=== PATIENT | female | born 1955 | race Caucasian/White ===

== ENCOUNTER 2021-11-24 10:45 | Emergency (ER) | payer MEDICAID, SELFPAY ==
[2021-11-24 12:33] VITALS: BP 146/72; PULSE 77; RESP 15; TEMP 37.1; O2SAT 95; BMI 46.5
--- NOTE | 2021-11-24 13:43 | CTR_ITS ---
PROCEDURE INFORMATION: Exam: CT Abdomen And Pelvis With Contrast Exam date and time: 11/24/2021 3:53 PM Age: 66 years old Clinical indication: Other: Llq pain; Additional info: Llq abd pain TECHNIQUE: Imaging protocol: Computed tomography of the abdomen and pelvis with contrast. Radiation optimization: All CT scans at this facility use at least one of these dose optimization techniques: automated exposure control; mA and/or kV adjustment per patient size (includes targeted exams where dose is matched to clinical indication); or iterative reconstruction. Contrast material: OMNIPAQUE 300; Contrast volume: 95 ml; Contrast route: INTRAVENOUS (IV); COMPARISON: No relevant prior studies available. RADIATION DOSE METRICS: Total DLP (mGy-cm): 1822.12 FINDINGS: Lungs: Bibasilar atelectasis versus minimal infiltrate. Heart: Coronary artery atherosclerotic calcifications. Liver: Normal. No mass. Gallbladder and bile ducts: Gallbladder wall somewhat prominent, ultrasound could further evaluate this. Pancreas: Normal. No ductal dilation. Spleen: Normal. No splenomegaly. Adrenal glands: Normal. No mass. Kidneys and ureters: Normal. No hydronephrosis. Stomach and bowel: Mid sigmoid colon demonstrates several diverticuli with perhaps mild wall thickening and minimal surrounding edema as seen on series 602, image 52, perhaps reflecting an early diverticulitis in the appropriate clinical setting. Constipation. Prominent fluid in the small bowel without dilation suggestive of an enteritis. Appendix: No evidence of appendicitis. Intraperitoneal space: Unremarkable. No free air. No significant fluid collection. Vasculature: Unremarkable. No abdominal aortic aneurysm. Lymph nodes: Unremarkable. No enlarged lymph nodes. Urinary bladder: Unremarkable as visualized. Reproductive: Unremarkable as visualized. Bones/joints: Unremarkable. No acute fracture. Soft tissues: Unremarkable. CT/CT abdomen pelvis w con* [id number] IMPRESSION: 1. Mid sigmoid colon demonstrates several diverticuli with perhaps mild wall thickening and minimal surrounding edema as seen on series 602, image 52, perhaps reflecting an early diverticulitis in the appropriate clinical setting. 2. Bibasilar atelectasis versus minimal infiltrate. 3. Coronary artery atherosclerotic calcifications. 4. Gallbladder wall somewhat prominent, ultrasound could further evaluate this. 5. Constipation. 6. Prominent fluid in the small bowel without dilation suggestive of an enteritis.
--- NOTE | 2021-11-24 13:49 | W.ED.GIBLEED ---
HPI - GI Bleed General: Chief complaint: GI Bleed Stated complaint: bloody stool Time Seen by Provider: 11/24/21 13:31 Course Vital Signs: Vital signs: Vital Signs Temperature 98.7 F 11/24/21 12:33 Pulse Rate 77 11/24/21 12:33 Respiratory Rate 15 11/24/21 12:33 Blood Pressure 146/72 11/24/21 12:33 Pulse Oximetry 95 11/24/21 12:33 Discharge Plan Discharge Condition: Stable Referrals: Celestine Domingo DO [Primary Care Provider] - Coding Level of Care Code ED Armed Security Guard for Solomon Brunson
[2021-11-24 13:51] VITALS: BP 145/114; PULSE 75; RESP 16; O2SAT 92
--- NOTE | 2021-11-24 13:52 | W.ED.GENADLT ---
HPI - General Adult General: Chief complaint: GI Bleed Stated complaint: bloody stool Time Seen by Provider: 11/24/21 13:31 History of Present Illness: Patient is a 66-year-old female with a history of prior hysterectomy presenting to the emergency room with concerns for clots and blood in stool. Patient tells me that since last , she has had multiple episodes of stool with large clots. Patient denies any history of hemorrhoids, rectal pain. Patient tells me that symptoms persisted for the last 3 days and stop until yesterday. Patient denies any fever or chills, abdominal pain, nausea/vomiting, hematemesis, complaints or change in p.o. intake. Patient also denies any chest pain, shortness breath, or palpitation. Onset: 6 days ago Duration: 4 days Location:home Severity:moderate Associated symptoms: Deny chest pain, dyspnea, nausea, rash, palpitations or vomiting Review of Systems Const: Denies: fever(s) or chills Eyes: Denies: change in vision ENMT: Denies: mouth pain Card: Denies: chest pain or palpitations Resp: Denies: dyspnea or non-productive cough GI: Reports: other (+blood in stool); Denies: abdominal pain, nausea, vomiting or diarrhea (+loose stool) : Denies: dysuria Musc: Denies: extremity pain Skin/Breast: Denies: rash or new lesions Neuro: Denies: weakness in extremities Psych: Reports: other (Normal mood) Leroy/Lymph: Denies: easy bruising PFSH ED PFSH: Surgical History H/O: hysterectomy Social History Smoking and tobacco status: never smoked Alcohol intake: never Substance/Drug Use: never Physical Exam Const: COMMON NORMALS: alert HENMT: COMMON NORMALS: atraumatic HEAD & SCALP: atraumatic MOUTH: moist mucous membranes not abnormal Eye: COMMON NORMALS: EOMs intact bilaterally and conjunctivae normal CONJUNCTIVA: Yes conjunctivae normal Neck/C-Spine: COMMON NORMALS: full ROM and supple Resp: COMMON NORMALS: normal respiratory effort and clear to auscultation bilaterally AUSCULTATION: clear to auscultation bilaterally Cardio: COMMON NORMALS: regular rate RATE: regular rate GI: COMMON NORMALS: Soft to palpation PALPATION: Yes Soft to palpation OTHER: + LLQ focal TTP. NO guarding rebound, guarding, rigidity. No CVA tenderness to percussion. Neg Mensah/Neg McBurney's point tenderness, no suprabupic tenderness to palpation. RECTAL: Exam supervised by Gisell: no melena or hematochezia. Hemoccult negative brown stool Extremity: COMMON NORMALS: full ROM Neuro: SENSORIUM/ORIENTATION: Yes alert MOTOR EXAM: No Abnormal motor strength present and Other motor observations present (no focal motor deficits) Psych: COMMON NORMALS: speech normal SPEECH: Yes normal speech MOOD & AFFECT: Yes euthymic mood Course Vital Signs: Vital signs: Vital Signs Temperature 98.7 F 11/24/21 12:33 Pulse Rate 75 11/24/21 13:51 Respiratory Rate 16 11/24/21 14:14 Blood Pressure 145/114 11/24/21 13:51 Pulse Oximetry 92 11/24/21 13:51 [facility] - General Adult Medical Decision Making 66-year-old female history of prior hysterectomy presenting to the emergency room for concerns of passage of clots in the stool. Patient has had symptoms for 4 days currently without any symptoms. On physical exam, patient has a moderate left lower quadrant tenderness to palpation without any guarding or rebound tenderness. Hemoccult negative stool today. Hemodynamically stable. White count of 8.8. CT abdomen pelvis showed possible early diverticulitis. Patient's not complaining lower abdominal pain. Patient is tolerating p.o. without difficulty. H&H appears to be stable. Do not suspect acute lower GI bleed. In setting of pain, likely early diverticulitis. I have patient follow-up closely with her primary care provider. Patient reassured me that she will follow-up closely. Rx augmentin BID for early diverticulitis, florastor for antibiotics Disposition: Discharge. Patient counseled regarding diagnostic impression, treatment plan. Patient given ED strict return precautions to return for continuation, worsening, or development of new symptoms. Instructed to f/u w/ PCP regarding symptoms today. Patient verbalized understanding. Lab Data : 11/24/21 14:07 11/24/21 14:07 Radiology Impressions Abdomen/Pelvis CT 11/24/21 13:43 IMPRESSION: 1. Mid sigmoid colon demonstrates several diverticuli with perhaps mild wall thickening and minimal surrounding edema as seen on series 602, image 52, perhaps reflecting an early diverticulitis in the appropriate clinical setting. 2. Bibasilar atelectasis versus minimal infiltrate. 3. Coronary artery atherosclerotic calcifications. 4. Gallbladder wall somewhat prominent, ultrasound could further evaluate this. 5. Constipation. 6. Prominent fluid in the small bowel without dilation suggestive of an enteritis. Laboratory Results WBC 8.8 10^3/uL (4.0-10.0) 11/24/21 14:07 RBC 5.07 10^6/uL (4.1-5.3) 11/24/21 14:07 Hgb 14.5 g/dL (11.5-15.3) 11/24/21 14:07 Hct 45.2 % (37.0-47.0) 11/24/21 14:07 MCV 89.2 fl (81-99) 11/24/21 14:07 MCH 28.6 pg (28.0-34.0) 11/24/21 14:07 MCHC 32.1 g/dL (30.0-36.0) 11/24/21 14:07 RDW 13.3 % (12.1-15.1) 11/24/21 14:07 Plt Count 244 10^3/cmm (130-400) 11/24/21 14:07 MPV 11.7 fL (7.4-10.4) H 11/24/21 14:07 Neut % (Auto) 58.8 % 11/24/21 14:07 Lymph % (Auto) 26.4 % 11/24/21 14:07 [place] % (Auto) 10.3 % 11/24/21 14:07 Eos % (Auto) 3.7 % 11/24/21 14:07 Baso % (Auto) 0.6 % 11/24/21 14:07 Neut # (Auto) 5.19 10^3/uL (1.8-7.7) 11/24/21 14:07 Lymph # (Auto) 2.3 10^3/uL (0.8-4.8) 11/24/21 14:07 [place] # (Auto) 0.9 10^3/uL (0.2-0.9) 11/24/21 14:07 Eos # (Auto) 0.3 10^3/uL (0.0-0.8) 11/24/21 14:07 Baso # (Auto) 0.1 10^3/uL (0.0-0.1) 11/24/21 14:07 Nucleated RBC % (auto) 0 % 11/24/21 14:07 Nucleated RBCs # 0.0 /100WBC 11/24/21 14:07 PT 13.50 SECONDS (12.1-14.9) 11/24/21 14:07 INR 1.00 (0.8-1.2) 11/24/21 14:07 APTT 27.2 SECONDS (23.9-36.7) 11/24/21 14:07 Sodium 138 mmol/L (136-145) 11/24/21 14:07 Potassium 4.7 mmol/L (3.5-5.1) 11/24/21 14:07 Chloride 102 mmol/L (98-107) 11/24/21 14:07 Carbon Dioxide 23 mmol/L (22-29) 11/24/21 14:07 Anion Gap 17.7 (5-19) 11/24/21 14:07 BUN 21 mg/dL (8-23) 11/24/21 14:07 Creatinine 1.0 mg/dL (0.5-0.9) H 11/24/21 14:07 GFR Calculation 55.8 mL/min (90-130) L 11/24/21 14:07 Glucose 143 mg/dL (65-115) H 11/24/21 14:07 Calculated Osmolality 291 mOsm/kg (285-295) 11/24/21 14:07 Calcium 9.8 mg/dL (8.5-10.5) 11/24/21 14:07 Total Bilirubin 0.4 mg/dL (0.15-1.2) 11/24/21 14:07 AST 19 U/L (0-32) 11/24/21 14:07 ALT 14 U/L (0-33) 11/24/21 14:07 Alkaline Phosphatase 84 IU/L (35-105) 11/24/21 14:07 Total Protein 8.1 g/dL (6.6-8.7) 11/24/21 14:07 Albumin 4.3 g/dL (3.5-5.2) 11/24/21 14:07 Globulin 3.8 g/dL (1.3-4.6) 11/24/21 14:07 Blood Type B Positive 11/24/21 14:22 Rho(D) Type Positive 11/24/21 14:22 Antibody Screen Negative 11/24/21 14:22 Imaging Data Other Imaging: Radiologist's impression: [address] [address] [address] Scan Report Signed Patient: Victoria Crook Unit #: [id number] : 1955 Age/Sex: 66 / F ADM Date: 11/24/21 Loc: ER Room/Bed: Attending Dr: Ordering Provider/Ordering MD: Fidel Pruett MD Date of Service: 11/24/21 Procedure(s): CT abdomen pelvis w con* [id number] Accession Number(s): [id number] Report Number: [id number] PROCEDURE INFORMATION: Exam: CT Abdomen And Pelvis With Contrast Exam date and time: 11/24/2021 3:53 PM Age: 66 years old Clinical indication: Other: Llq pain; Additional info: Llq abd pain TECHNIQUE: Imaging protocol: Computed tomography of the abdomen and pelvis with contrast. Radiation optimization: All CT scans at this facility use at least one of these dose optimization techniques: automated exposure control; mA and/or kV adjustment per patient size (includes targeted exams where dose is matched to clinical indication); or iterative reconstruction. Contrast material: OMNIPAQUE 300; Contrast volume: 95 ml; Contrast route: INTRAVENOUS (IV);? COMPARISON: No relevant prior studies available. RADIATION DOSE METRICS: Total DLP (mGy-cm): 1822.12 FINDINGS: Lungs: Bibasilar atelectasis versus minimal infiltrate. Heart: Coronary artery atherosclerotic calcifications. Liver: Normal. No mass. Gallbladder and bile ducts: Gallbladder wall somewhat prominent, ultrasound could further evaluate this. Pancreas: Normal. No ductal dilation. Spleen: Normal. No splenomegaly. Adrenal glands: Normal. No mass. Kidneys and ureters: Normal. No hydronephrosis. Stomach and bowel: Mid sigmoid colon demonstrates several diverticuli with perhaps mild wall thickening and minimal surrounding edema as seen on series 602, image 52, perhaps reflecting an early diverticulitis in the appropriate clinical setting. Constipation. Prominent fluid in the small bowel without dilation suggestive of an enteritis. Appendix: No evidence of appendicitis. Intraperitoneal space: Unremarkable. No free air. No significant fluid collection. Vasculature: Unremarkable. No abdominal aortic aneurysm. Lymph nodes: Unremarkable. No enlarged lymph nodes. Urinary bladder: Unremarkable as visualized. Reproductive: Unremarkable as visualized. Bones/joints: Unremarkable. No acute fracture. Soft tissues: Unremarkable. CT/CT abdomen pelvis w con* [id number] IMPRESSION: 1. Mid sigmoid colon demonstrates several diverticuli with perhaps mild wall thickening and minimal surrounding edema as seen on series 602, image 52, perhaps reflecting an early diverticulitis in the appropriate clinical setting. 2. Bibasilar atelectasis versus minimal infiltrate. 3. Coronary artery atherosclerotic calcifications. 4. Gallbladder wall somewhat prominent, ultrasound could further evaluate this. 5. Constipation. 6. Prominent fluid in the small bowel without dilation suggestive of an enteritis. ? Dictated By: Jon Gu MD Signed By: Jon Gu MD Signed Date/Time: 11/24/21 1622 DD/ 1553 Discharge Plan Discharge Patient Disposition: Home Clinical Impression: Diverticulitis, Abdominal pain Condition: Stable Prescriptions: New amoxicillin-pot clavulanate 875-125 mg tablet 1 tab PO BID 7 Days Qty: 14 0RF Florastor 250 mg capsule 250 mg PO BID 7 Days Qty: 14 0RF No Action citalopram 40 mg tablet 40 mg PO QAM 0RF lisinopril 20 mg tablet 20 mg PO QAM 0RF glipizide 10 mg tablet 10 mg PO QAM 0RF Tylenol Arthritis Pain 650 mg Tablet Extended Release 1,950 mg PO Q6H PRN (Reason: Pain) 0RF Euthyrox 75 mcg tablet 75 mcg PO QAM 0RF famotidine 20 mg Tablet 20 mg PO DAILY PRN (Reason: Heartburn) 0RF metoprolol tartrate 50 mg tablet 50 mg PO QAM 0RF diltiazem HCl 60 mg tablet 60 mg PO QAM 0RF rosuvastatin 20 mg tablet 20 mg PO QAM 0RF Lantus Solostar U-100 Insulin 100 unit/mL (3 mL) insulin pen 50 unit SUBCUT BID 0RF Discharge Orders: Discharge ED (Routine); Ordered 11/24/21 Ordered By: Fidel Pruett Referrals: Celestine Domingo, [Primary Care Provider] - Discharge Diet: Advance as tolerated Discharge Activity: Increase activity as tolerated Patient Instructions: Diverticulitis (ED), Abdominal Pain (ED) Activity Restrictions/Additional Instructions: Please come back if you have any worsening abdominal pain, fever or chills, nausea or vomiting, diarrhea, blood in the stool, inability hold down liquid or solids, or any new concerning complaints. Coding Level of Care Code ED Air Conditioning Sheet Metal Installer for Chg Fwd Exam Comprehensive
[2021-11-24] MEDS: sodium chloride 0.9% 1,000 ML 999 ML IV (14:13)
[2021-11-24 14:14] VITALS: RESP 16
[2021-11-24] MEDS: morphine 4 mg/mL SDV 1 mL 2 MG IVP (14:14)
[2021-11-24] MEDS: famotidine 20 mg/2 mL INJ IVP (14:15)
[2021-11-24 14:16] LABS: Basophils # 0.1 10^3/uL (0.0-0.1); Basophils % 0.6 %; Eosinophils # 0.3 10^3/uL (0.0-0.8); Eosinophils % 3.7 %; Hematocrit 45.2 % (37.0-47.0); Hemoglobin 14.5 g/dL (11.5-15.3); Lymphocytes # 2.3 10^3/uL (0.8-4.8); Lymphocytes % 26.4 %; Mean Corpuscular HGB Conc 32.1 g/dL (30.0-36.0); Mean Corpuscular Hemoglobin 28.6 pg (28.0-34.0); Mean Corpuscular Volume 89.2 fl (81-99); Mean Platelet Volume 11.7 fL (7.4-10.4); Monocytes # 0.9 10^3/uL (0.2-0.9); Monocytes % 10.3 %; Neutrophils # 5.19 10^3/uL (1.8-7.7); Neutrophils % 58.8 %; Nucleated Red Blood Cells % 0 %; Platelet Count 244 10^3/cmm (130-400); Red Blood Count 5.07 10^6/uL (4.1-5.3); Red Cell Distribution Width 13.3 % (12.1-15.1); White Blood Count 8.8 10^3/uL (4.0-10.0)
[2021-11-24 14:32] LABS: Partial Thromboplastin Time 27.2 SECONDS (23.9-36.7)
[2021-11-24 14:37] LABS: Alanine Aminotransferase 14 U/L (0-33); Albumin Level 4.3 g/dL (3.5-5.2); Alkaline Phosphatase 84 IU/L (35-105); Anion Gap 17.7 (5-19); Aspartate Amino Transferase 19 U/L (0-32); Blood Urea Nitrogen 21 mg/dL (8-23); Calcium 9.8 mg/dL (8.5-10.5); Carbon Dioxide 23 mmol/L (22-29); Chloride 102 mmol/L (98-107); Globulin 3.8 g/dL (1.3-4.6); Glomerular Filtration Rate 55.8 mL/min (90-130); Glucose 143 mg/dL (65-115); Osmolality Calculated 291 mOsm/kg (285-295); Potassium 4.7 mmol/L (3.5-5.1); Sodium 138 mmol/L (136-145); Total Bilirubin 0.4 mg/dL (0.15-1.2); Total Protein 8.1 g/dL (6.6-8.7)
[2021-11-24] MEDS: iohexol 300 mg/mL 100 mL Btl IV (15:52)
== END 2021-11-24 16:45 | disposition home or self-care (01) ==
PROVIDERS: Physician Assistant; Emergency Provider Emergency Medicine; PCP Family Medicine
DX: K57.32 Diverticulitis of large intestine without perforation or abscess without bleeding (principal); R10.9 Unspecified abdominal pain
CPT/HCPCS: 74177; 80053; 85025; 85610; 85730; 86850; 86900; 96361; 96374; 96375; 99284; J2270; J3490; J7030; Q9967